=== PATIENT | male | born 1945 | race African-American/Black ===

== ENCOUNTER 2023-10-12 | Outpatient (CLI) | payer MEDICARE | END 2023-10-12 14:53 | disposition home or self-care (01) | DX: I87.313 Chronic venous hypertension (idiopathic) with ulcer of bilateral lower extremity (principal); L97.212 Non-pressure chronic ulcer of right calf with fat layer exposed; L97.122 Non-pressure chronic ulcer of left thigh with fat layer exposed; I89.0 Lymphedema, not elsewhere classified; I50.32 Chronic diastolic (congestive) heart failure ==

== ENCOUNTER 2023-11-01 14:40 | Outpatient (CLI) | payer MEDICARE | END 2023-11-01 14:41 | disposition home or self-care (01) | LOC: CSHWCC 14:40 | PROVIDERS: ATTEND Nurse Practitioner Family | DX: I87.313 Chronic venous hypertension (idiopathic) with ulcer of bilateral lower extremity (principal); L97.212 Non-pressure chronic ulcer of right calf with fat layer exposed; L97.122 Non-pressure chronic ulcer of left thigh with fat layer exposed; I50.32 Chronic diastolic (congestive) heart failure; I89.0 Lymphedema, not elsewhere classified | CPT/HCPCS: 11042 ==

== ENCOUNTER 2024-01-07 14:34 | Outpatient (CLI) | payer OTHER | END 2024-01-07 14:35 | disposition home or self-care (01) | LOC: CSHWCC 14:34 | PROVIDERS: ATTEND Nurse Practitioner Family | DX: S80.211D Abrasion, right knee, subsequent encounter (principal); I87.313 Chronic venous hypertension (idiopathic) with ulcer of bilateral lower extremity; I89.0 Lymphedema, not elsewhere classified; I50.32 Chronic diastolic (congestive) heart failure; L97.929 Non-pressure chronic ulcer of unspecified part of left lower leg with unspecified severity; L97.919 Non-pressure chronic ulcer of unspecified part of right lower leg with unspecified severity | CPT/HCPCS: 11042 ==

== ENCOUNTER 2024-01-14 15:31 | Outpatient (CLI) | payer OTHER | END 2024-01-14 15:32 | disposition home or self-care (01) | LOC: CSHWCC 15:31 | PROVIDERS: ATTEND Nurse Practitioner Family | DX: I87.313 Chronic venous hypertension (idiopathic) with ulcer of bilateral lower extremity (principal); S80.211D Abrasion, right knee, subsequent encounter; I89.0 Lymphedema, not elsewhere classified; I50.32 Chronic diastolic (congestive) heart failure | CPT/HCPCS: 11042 ==

== ENCOUNTER 2024-01-20 15:42 | Outpatient (CLI) | payer OTHER | END 2024-01-20 15:43 | disposition home or self-care (01) | LOC: CSHWCC 15:42 | PROVIDERS: ATTEND Preventive Medicine Undersea and Hyperbaric Medicine | DX: S80.211D Abrasion, right knee, subsequent encounter (principal); I87.313 Chronic venous hypertension (idiopathic) with ulcer of bilateral lower extremity; I89.0 Lymphedema, not elsewhere classified; I50.32 Chronic diastolic (congestive) heart failure; L97.919 Non-pressure chronic ulcer of unspecified part of right lower leg with unspecified severity; L97.929 Non-pressure chronic ulcer of unspecified part of left lower leg with unspecified severity | CPT/HCPCS: 99213; G0463 ==

== ENCOUNTER 2024-02-02 16:22 | Outpatient (CLI) | payer OTHER | END 2024-02-02 16:23 | disposition home or self-care (01) | LOC: CSHWCC 16:22 | PROVIDERS: ATTEND Nurse Practitioner Family | DX: I87.312 Chronic venous hypertension (idiopathic) with ulcer of left lower extremity (principal); L97.312 Non-pressure chronic ulcer of right ankle with fat layer exposed; I50.32 Chronic diastolic (congestive) heart failure; I89.0 Lymphedema, not elsewhere classified | CPT/HCPCS: 11042 ==

== ENCOUNTER 2024-02-16 15:33 | Outpatient (CLI) | payer OTHER | END 2024-02-16 15:34 | disposition home or self-care (01) | LOC: CSHWCC 15:33 | PROVIDERS: ATTEND Nurse Practitioner Family | DX: I87.312 Chronic venous hypertension (idiopathic) with ulcer of left lower extremity (principal); L97.312 Non-pressure chronic ulcer of right ankle with fat layer exposed; I89.0 Lymphedema, not elsewhere classified; I50.32 Chronic diastolic (congestive) heart failure | CPT/HCPCS: 11042 ==

== ENCOUNTER 2024-07-20 11:10 | Outpatient (CLI) | payer OTHER | END 2024-07-20 11:11 | disposition home or self-care (01) | LOC: CSHWCC 11:10 | PROVIDERS: ATTEND Nurse Practitioner Family | DX: I87.311 Chronic venous hypertension (idiopathic) with ulcer of right lower extremity (principal); L97.312 Non-pressure chronic ulcer of right ankle with fat layer exposed; I50.32 Chronic diastolic (congestive) heart failure; I89.0 Lymphedema, not elsewhere classified | CPT/HCPCS: 11042; G0463; 99213 ==

== ENCOUNTER 2024-07-27 15:40 | Outpatient (CLI) | payer OTHER | END 2024-07-27 15:41 | disposition home or self-care (01) | LOC: CSHWCC 15:40 | PROVIDERS: ATTEND Nurse Practitioner Family | DX: I87.311 Chronic venous hypertension (idiopathic) with ulcer of right lower extremity (principal); L97.312 Non-pressure chronic ulcer of right ankle with fat layer exposed; I89.0 Lymphedema, not elsewhere classified; I50.32 Chronic diastolic (congestive) heart failure ==

== ENCOUNTER 2024-08-03 15:20 | Outpatient (CLI) | payer OTHER | END 2024-08-03 15:21 | disposition home or self-care (01) | LOC: CSHWCC 15:20 | PROVIDERS: ATTEND Nurse Practitioner Family | DX: I87.311 Chronic venous hypertension (idiopathic) with ulcer of right lower extremity (principal); L97.312 Non-pressure chronic ulcer of right ankle with fat layer exposed; I50.32 Chronic diastolic (congestive) heart failure; I89.0 Lymphedema, not elsewhere classified | CPT/HCPCS: 99212; G0463 ==

== ENCOUNTER 2024-08-16 15:07 | Outpatient (CLI) | payer OTHER | END 2024-08-16 15:08 | disposition home or self-care (01) | LOC: CSHWCC 15:07 | PROVIDERS: ATTEND Nurse Practitioner Family | DX: I89.0 Lymphedema, not elsewhere classified (principal); I50.32 Chronic diastolic (congestive) heart failure; Z87.2 Personal history of diseases of the skin and subcutaneous tissue | CPT/HCPCS: 99212; G0463 ==

== ENCOUNTER 2025-02-28 10:06 | Outpatient (CLI) | payer MEDICARE | END 2025-02-28 10:07 | disposition home or self-care (01) | LOC: CSHWCC 10:06 | PROVIDERS: ATTEND Nurse Practitioner Family | DX: I87.311 Chronic venous hypertension (idiopathic) with ulcer of right lower extremity (principal); L97.312 Non-pressure chronic ulcer of right ankle with fat layer exposed; I11.0 Hypertensive heart disease with heart failure; I50.32 Chronic diastolic (congestive) heart failure; I89.0 Lymphedema, not elsewhere classified; Z72.0 Tobacco use | CPT/HCPCS: 11042; G0463; 99214 ==

== ENCOUNTER 2025-03-09 08:24 | Outpatient (CLI) | payer MEDICARE | END 2025-03-09 08:25 | disposition home or self-care (01) | LOC: CSHWCC 08:24 | PROVIDERS: ATTEND Nurse Practitioner Family | DX: I87.313 Chronic venous hypertension (idiopathic) with ulcer of bilateral lower extremity (principal); L97.312 Non-pressure chronic ulcer of right ankle with fat layer exposed; L97.322 Non-pressure chronic ulcer of left ankle with fat layer exposed; I11.0 Hypertensive heart disease with heart failure; I50.32 Chronic diastolic (congestive) heart failure; I89.0 Lymphedema, not elsewhere classified; Z72.0 Tobacco use | CPT/HCPCS: 11042 ==

== ENCOUNTER 2025-03-16 09:22 | Outpatient (CLI) | payer MEDICARE | END 2025-03-16 09:23 | disposition home or self-care (01) | LOC: CSHWCC 09:22 | PROVIDERS: ATTEND Nurse Practitioner Family | DX: I87.313 Chronic venous hypertension (idiopathic) with ulcer of bilateral lower extremity (principal); L97.312 Non-pressure chronic ulcer of right ankle with fat layer exposed; L97.322 Non-pressure chronic ulcer of left ankle with fat layer exposed; I11.0 Hypertensive heart disease with heart failure; I50.32 Chronic diastolic (congestive) heart failure; I89.0 Lymphedema, not elsewhere classified; Z72.0 Tobacco use | CPT/HCPCS: 11042; G0463; 99213 ==

== ENCOUNTER 2025-03-23 10:32 | Outpatient (CLI) | payer MEDICARE | END 2025-03-23 10:33 | disposition home or self-care (01) | LOC: CSHWCC 10:32 | PROVIDERS: ATTEND Nurse Practitioner Family | DX: I87.313 Chronic venous hypertension (idiopathic) with ulcer of bilateral lower extremity (principal); L97.312 Non-pressure chronic ulcer of right ankle with fat layer exposed; L97.322 Non-pressure chronic ulcer of left ankle with fat layer exposed; I11.0 Hypertensive heart disease with heart failure; I50.32 Chronic diastolic (congestive) heart failure; I89.0 Lymphedema, not elsewhere classified; L08.9 Local infection of the skin and subcutaneous tissue, unspecified; Z72.0 Tobacco use ==

== ENCOUNTER 2025-04-04 12:52 | Outpatient (CLI) | payer MEDICARE | END 2025-04-04 12:53 | disposition home or self-care (01) | LOC: CSHWCC 12:52 | PROVIDERS: ATTEND Nurse Practitioner Family | DX: I87.311 Chronic venous hypertension (idiopathic) with ulcer of right lower extremity (principal); L97.312 Non-pressure chronic ulcer of right ankle with fat layer exposed; I89.0 Lymphedema, not elsewhere classified; I11.0 Hypertensive heart disease with heart failure; I50.32 Chronic diastolic (congestive) heart failure; Z72.0 Tobacco use | CPT/HCPCS: 11042; G0463; 99212 ==

== ENCOUNTER 2025-04-12 09:35 | Outpatient (CLI) | payer MEDICARE | END 2025-04-12 09:36 | disposition home or self-care (01) | LOC: CSHWCC 09:35 | PROVIDERS: ATTEND Nurse Practitioner Family | DX: I87.311 Chronic venous hypertension (idiopathic) with ulcer of right lower extremity (principal); L97.312 Non-pressure chronic ulcer of right ankle with fat layer exposed; I89.0 Lymphedema, not elsewhere classified; I11.0 Hypertensive heart disease with heart failure; I50.32 Chronic diastolic (congestive) heart failure; Z72.0 Tobacco use | CPT/HCPCS: 11042 ==

== ENCOUNTER 2025-04-18 13:42 | Outpatient (CLI) | payer MEDICARE | END 2025-04-18 13:43 | disposition home or self-care (01) | LOC: CSHWCC 13:42 | PROVIDERS: ATTEND Nurse Practitioner Family | DX: I87.311 Chronic venous hypertension (idiopathic) with ulcer of right lower extremity (principal); L97.312 Non-pressure chronic ulcer of right ankle with fat layer exposed; I11.0 Hypertensive heart disease with heart failure; I50.32 Chronic diastolic (congestive) heart failure; I89.0 Lymphedema, not elsewhere classified; Z72.0 Tobacco use | CPT/HCPCS: 99214; G0463 ==

== ENCOUNTER 2025-04-18 15:05 | Emergency (ER) | payer MEDICARE ==
[2025-04-18 17:24] LABS: #Basophils Less than 0.03 10x3/uL (0.0-0.2); #Eosinophils 0.14 10x3/uL (0.0-0.5); #Monocytes 0.77 10x3/uL (0.0-1.1); #Neutrophils 4.21 10x3/uL (1.5-8.4); %Basophils 0.2 % (0.0-2.0); %Eosinophils 2.3 % (0.0-6.0); %Lymphocytes 15.8 % (18.0-47.0); %Monocytes 12.6 % (0.0-10.0); %Neutrophils 68.8 % (40.0-75.0); Hematocrit 36.3 % (38.8-50.0); Hemoglobin 12.2 g/dL (13.5-17.5); Mean Corpuscular Hemoglobin 29.7 pg (27.0-33.0); Mean Corpuscular Volume 88.3 fL (81.2-95.1); Platelet Count 302 10x3/uL (150-450); Red Blood Cell (RBC) Count 4.11 10x6/uL (4.32-5.72); White Blood Cell (WBC) Count 6.12 10x3/uL (3.5-10.5)
[2025-04-18 17:36] LABS: INR-International Normal Ratio 1.2; PTT 27.9 sec (22.0-33.0); Prothrombin Time 12.7 sec (9.5-12.1)
[2025-04-18 17:40] LABS: ALT (SGPT) 12 U/L (Less than 45); AST (SGOT) 24 U/L (11-34); Albumin 3.1 g/dL (3.1-4.5); Alkaline Phosphatase 71 U/L (40-110); Anion Gap 9 mmol/L (10-20); BUN (Urea Nitrogen) 13 mg/dL (8.4-25.7); Bilirubin, Total 0.5 mg/dL (0.3-1.2); CK (CPK) 234 U/L (30-200); Calc. Creatinine Clearance 0 mL/min (70-130); Calcium 9.0 mg/dL (7.8-10.44); Carbon Dioxide 29 mmol/L (23-31); Chloride 100 mmol/L (98-107); Globulin 5.0 g/dL (2.4-3.5); Glucose 91 mg/dL (83-110); Potassium 3.3 mmol/L (3.5-5.1); Sodium 135 mmol/L (136-145)
[2025-04-18] MEDS ORDERED: Cefepime 2 GM VIAL ONE (17:53)
[2025-04-18] MEDS ORDERED: VANCOMYCIN 2 GRAM/400 ML BAG 2 GM in Premix 1 BAG IVPB SCH (18:15)
[2025-04-19] MEDS ORDERED: Cefepime 2 GM VIAL ONE (05:23)
[2025-04-19] MEDS ORDERED: VANCOMYCIN 2 GRAM/400 ML BAG 2 GM in Premix 1 BAG IVPB SCH (07:15)
== END 2025-04-19 13:37 | disposition short-term general hospital (02) ==
LOC: CSHERS 15:05
DX: L97.519 Non-pressure chronic ulcer of other part of right foot with unspecified severity (principal); S91.301A Unspecified open wound, right foot, initial encounter; L03.115 Cellulitis of right lower limb; I25.10 Atherosclerotic heart disease of native coronary artery without angina pectoris; I25.2 Old myocardial infarction; I11.0 Hypertensive heart disease with heart failure; I50.9 Heart failure, unspecified; X58.XXXA Exposure to other specified factors, initial encounter; C34.32 Malignant neoplasm of lower lobe, left bronchus or lung; C18.0 Malignant neoplasm of cecum; D50.0 Iron deficiency anemia secondary to blood loss (chronic)
CPT/HCPCS: 71045; 73590; 80053; 82550; 83605; 83880; 85025; 85610; 85730; 93005; 96365; 96366; 96367; 96376; 99285; J0692 ×2; J3375 ×2; 99214; G0463

== ENCOUNTER 2025-04-25 12:59 | Outpatient (CLI) | payer MEDICARE | END 2025-04-25 13:00 | disposition home or self-care (01) | LOC: CSHWCC 12:59 | PROVIDERS: ATTEND Nurse Practitioner Family | DX: I87.311 Chronic venous hypertension (idiopathic) with ulcer of right lower extremity (principal); L97.312 Non-pressure chronic ulcer of right ankle with fat layer exposed; I11.0 Hypertensive heart disease with heart failure; I50.32 Chronic diastolic (congestive) heart failure; I89.0 Lymphedema, not elsewhere classified; Z72.0 Tobacco use | CPT/HCPCS: 11043; 11046; G0463; 99213 ==

== ENCOUNTER 2025-04-27 13:17 | Outpatient (CLI) | payer MEDICARE | END 2025-04-27 13:18 | disposition home or self-care (01) | LOC: CSHWCC 13:17 | PROVIDERS: ATTEND Nurse Practitioner Family | DX: I87.311 Chronic venous hypertension (idiopathic) with ulcer of right lower extremity (principal); L97.312 Non-pressure chronic ulcer of right ankle with fat layer exposed; I11.0 Hypertensive heart disease with heart failure; I50.32 Chronic diastolic (congestive) heart failure; I89.0 Lymphedema, not elsewhere classified; Z72.0 Tobacco use | CPT/HCPCS: 29581 ==

== ENCOUNTER 2025-05-15 14:43 | Outpatient (CLI) | payer MEDICARE | END 2025-05-15 14:44 | disposition home or self-care (01) | LOC: CSHWCC 14:43 | PROVIDERS: ATTEND Nurse Practitioner Family | DX: I87.311 Chronic venous hypertension (idiopathic) with ulcer of right lower extremity (principal); L97.312 Non-pressure chronic ulcer of right ankle with fat layer exposed; I11.0 Hypertensive heart disease with heart failure; I50.32 Chronic diastolic (congestive) heart failure; I89.0 Lymphedema, not elsewhere classified; L08.9 Local infection of the skin and subcutaneous tissue, unspecified; Z72.0 Tobacco use | CPT/HCPCS: 11042; 99406; G0463; 99213 ==

== ENCOUNTER 2025-05-21 15:07 | Outpatient (CLI) | payer MEDICARE | END 2025-05-21 15:08 | disposition home or self-care (01) | LOC: CSHWCC 15:07 | PROVIDERS: ATTEND Nurse Practitioner Family | DX: I87.311 Chronic venous hypertension (idiopathic) with ulcer of right lower extremity (principal); L97.312 Non-pressure chronic ulcer of right ankle with fat layer exposed; I11.0 Hypertensive heart disease with heart failure; I50.32 Chronic diastolic (congestive) heart failure; I89.0 Lymphedema, not elsewhere classified; L08.9 Local infection of the skin and subcutaneous tissue, unspecified; Z72.0 Tobacco use | CPT/HCPCS: 11042; G0463; 99213 ==

== ENCOUNTER 2025-06-18 15:04 | Outpatient (CLI) | payer MEDICARE | END 2025-06-18 15:05 | disposition home or self-care (01) | LOC: CSHWCC 15:04 | PROVIDERS: ATTEND Nurse Practitioner Family | DX: I87.311 Chronic venous hypertension (idiopathic) with ulcer of right lower extremity (principal); L97.312 Non-pressure chronic ulcer of right ankle with fat layer exposed; I89.0 Lymphedema, not elsewhere classified; L08.9 Local infection of the skin and subcutaneous tissue, unspecified; I11.0 Hypertensive heart disease with heart failure; I50.32 Chronic diastolic (congestive) heart failure; Z72.0 Tobacco use | CPT/HCPCS: 11042; 99406 ==

== ENCOUNTER 2025-07-16 14:58 | Outpatient (CLI) | payer MEDICARE | END 2025-07-16 14:59 | disposition home or self-care (01) | LOC: CSHWCC 14:58 | PROVIDERS: ATTEND Nurse Practitioner Family | DX: I87.311 Chronic venous hypertension (idiopathic) with ulcer of right lower extremity (principal); L97.312 Non-pressure chronic ulcer of right ankle with fat layer exposed; I11.0 Hypertensive heart disease with heart failure; I50.32 Chronic diastolic (congestive) heart failure; I89.0 Lymphedema, not elsewhere classified; Z72.0 Tobacco use | CPT/HCPCS: 11042; 99214; 99406; G0463 ==